=== PATIENT | female | born 1975 | race Caucasian/White ===

== ENCOUNTER → 2018-12-07 | Outpatient (CLI) | payer BC ==
--- NOTE | 2018-12-07 11:15 | RAD ---
EXAM: Pelvic sonogram. HISTORY: Dysfunctional uterine bleeding. TECHNIQUE: Transabdominal and transvaginal sonographic imaging of the pelvis was performed. COMPARISON: None. FINDINGS: The uterus measures 8.4 x 7.2 x 4.9 cm. The endometrial stripe is slightly heterogeneous and measures 14 mm in thickness. There is a tiny fluid collection or cyst within the endometrium. The ovaries are normal in size and demonstrate normal blood flow. There are nabothian cysts within the cervix. There is no pelvic free fluid. This IMPRESSION: 1. Slightly heterogeneous thickened endometrium containing a tiny amount of fluid or small cyst, measuring 14 mm. 2. Nabothian cysts within the cervix. 3. Unremarkable ovaries. Electronically signed by: Nicolasa Metz MD (12/07/2018 11:13 AM) [place] [id number]
== END | disposition home or self-care (01) ==
LOC: US 09:58
PROVIDERS: ATTEND Physician Assistant Medical
DX: N88.8 Other specified noninflammatory disorders of cervix uteri (principal); N93.8 Other specified abnormal uterine and vaginal bleeding
CPT/HCPCS: 76830; 76856

== ENCOUNTER → 2020-01-09 | Outpatient (CLI) | payer OTHER ==
--- NOTE | 2020-01-09 10:08 | RAD ---
Examination: Ultrasound right axilla HISTORY: History of lump in the right ankle COMPARISON: None available Findings/ impression: Ultrasound of the right axilla demonstrates a heterogeneous fluid collection measuring 2.1 x 2.1 x 1.0 cm with increased vascularity around the fluid collection could be small abscess. Electronically signed by: John Blood MD (01/09/2020 10:06 AM) [id number]
== END | disposition home or self-care (01) ==
LOC: US 08:57
PROVIDERS: ATTEND Physician Assistant Medical
DX: L73.8 Other specified follicular disorders (principal)
CPT/HCPCS: 76881